=== PATIENT | female | born 1955 ===

== ENCOUNTER → 2018-03-23 | Outpatient (CLI) | payer OTHER ==
[~2018-03-23] MED LIST: ALBU8.5H8 INH; ASPI-496 PO; CHOL2000 PO; FURO20TA3 PO; GADOBUTROL 10 MMOL/10 ML VIAL ONE; HYDR12.58 PO; LEVO50TA PO; MOME13HF3 INH; OXYB10TA PO; TELM40TA PO
== END ==
LOC: CFH 10:08
PROVIDERS: ATTEND Psychiatry & Neurology Neurology
DX: E05.00 Thyrotoxicosis with diffuse goiter without thyrotoxic crisis or storm (principal); E22.1 Hyperprolactinemia
CPT/HCPCS: 70553; A9585